=== PATIENT | female | born 1955 | race Asian ===

== ENCOUNTER 2017-12-07 14:40 | Emergency (ER) | payer MEDICAID ==
[~2017-12-07] VITALS: Ht 157.5 cm; Wt 95.5 kg
[~2017-12-07 14:40] MED LIST: COL100C PO; DEXL30CA3 PO; HYDR1TAB PO; LEVA15HF4 IH; LEVO500T89 PO; METO25TA6 PO; ONDA4TAB12 PO; TRAM50TA2 PO; WALKERFR; [UNRECOGNIZED DRUG - CODE] TOP
[2017-12-07] MEDS ORDERED: ALBU8.5H8 IH (15:44)
[2017-12-07] MEDS ORDERED: WALKERFR (15:44)
[2017-12-07] MEDS ORDERED: albuterol 2.5 MG/3 ML nebule NEB ONE (15:45)
[2017-12-07 16:10] VITALS: BP 120/44
== END 2017-12-07 16:13 | disposition home or self-care (01) ==
LOC: ER 14:40
DX: R05 Cough (principal); R53.83 Other fatigue; R42 Dizziness and giddiness; G89.29 Other chronic pain; K21.9 Gastro-esophageal reflux disease without esophagitis; Z88.6 Allergy status to analgesic agent; Z88.5 Allergy status to narcotic agent; Z88.8 Allergy status to other drugs, medicaments and biological substances; Z79.899 Other long term (current) drug therapy; Z98.890 Other specified postprocedural states; Z56.0 Unemployment, unspecified
CPT/HCPCS: 94640; 94760; 99283

== ENCOUNTER 2019-03-27 11:17 | Emergency (ER) | payer MEDICAID, OTHER ==
[~2019-03-27 11:17] MED LIST changes: +ALBU8.5H8 IH
--- NOTE | 2019-03-27 15:37 | NUR ---
PT CALLED, MESSAGES LEFT AT 2 DIFFERENT PHONE #. PROVIDER NOTIFIED OF LWOBS.
== END 2019-03-27 15:37 | disposition left against medical advice (07) ==
LOC: ER 11:17
DX: M25.559 Pain in unspecified hip (principal); Z53.21 Procedure and treatment not carried out due to patient leaving prior to being seen by health care provider

== ENCOUNTER 2019-03-31 03:52 | Emergency (ER) | payer MEDICAID, OTHER ==
[~2019-03-31] VITALS: Ht 165.1 cm; Wt 112.2 kg
[2019-03-31] MEDS ORDERED: LEVA15HF4 INH (04:09)
[2019-03-31] MEDS ORDERED: AZIT250T PO (04:09)
[2019-03-31 04:31] VITALS: BP 121/101
== END 2019-03-31 04:33 | disposition home or self-care (01) ==
LOC: ER 03:53
DX: R05 Cough (principal); Z76.0 Encounter for issue of repeat prescription; K21.9 Gastro-esophageal reflux disease without esophagitis; G89.29 Other chronic pain; F41.9 Anxiety disorder, unspecified; F32.9 Major depressive disorder, single episode, unspecified; Z60.2 Problems related to living alone; Z59.0 Homelessness; Z56.0 Unemployment, unspecified; Z98.890 Other specified postprocedural states; Z88.8 Allergy status to other drugs, medicaments and biological substances; Z88.5 Allergy status to narcotic agent; Z88.6 Allergy status to analgesic agent; Z79.899 Other long term (current) drug therapy
CPT/HCPCS: 99283

== ENCOUNTER 2022-02-18 13:01 | Emergency (ER) | payer MEDICAID, OTHER ==
[~2022-02-18] VITALS: Ht 165.1 cm; Wt 125.0 kg
[~2022-02-18 13:01] MED LIST changes: +ALBU8.5H17 IH; -ALBU8.5H8 IH; +AZIT250T PO; +LEVA15HF4 INH; +LEVO-65 PO; -LEVO500T89 PO; +LOP25T PO; -METO25TA6 PO
[2022-02-18 13:44] VITALS: BP 118/71
[2022-02-18] MEDS ORDERED: NAPR-56 PO (15:21)
== END 2022-02-18 15:40 | disposition home or self-care (01) ==
LOC: ER 13:01
DX: M17.9 Osteoarthritis of knee, unspecified (principal); M25.562 Pain in left knee; K21.9 Gastro-esophageal reflux disease without esophagitis; G89.29 Other chronic pain; F41.9 Anxiety disorder, unspecified; F32.A Depression, unspecified; Z98.890 Other specified postprocedural states; Z60.2 Problems related to living alone; Z56.0 Unemployment, unspecified; Z59.00 Homelessness unspecified; Z88.5 Allergy status to narcotic agent; Z88.8 Allergy status to other drugs, medicaments and biological substances; Z79.2 Long term (current) use of antibiotics; Z79.899 Other long term (current) drug therapy
CPT/HCPCS: 73564; 99284; A6449

== ENCOUNTER 2022-02-24 11:27 | Emergency (ER) | payer MEDICAID ==
[~2022-02-24] VITALS: Ht 162.6 cm; Wt 122.7 kg
[~2022-02-24 11:27] MED LIST changes: +NAPR-56 PO
[2022-02-24 12:37] LABS: ALANINE AMINOTRANSFERASE 31 U/L (12-78); ALBUMIN 3.2 G/DL (3.4-5.0); ALBUMIN/GLOBULIN RATIO 0.7 (1.1-1.5); ALKALINE PHOSPHATASE 103 IU/L (46-116); ANION GAP 6 (8-16); ASPARTATE AMINO TRANSFERASE 30 U/L (10-37); BILIRUBIN,TOTAL 0.6 MG/DL (0.1-1.0); BLOOD UREA NITROGEN 23 MG/DL (7-18); BUN/CREATININE RATIO 37.7 (6.6-38.0); CHLORIDE 104 MMOL/L (99-107); CREATININE 0.61 MG/DL (0.40-0.90); GLUCOSE 111 MG/DL (70-104); POTASSIUM 4.2 MMOL/L (3.5-5.1); SODIUM 138 MMOL/L (135-145); TOTAL PROTEIN 7.8 G/DL (6.4-8.2); eGFR > 90 ML/MIN
[2022-02-24 13:39] LABS: BASOPHILS % (AUTO) 0.4 % (0-1); EOSINOPHILS # (AUTO) 0.1 X10'3 (0-0.9); EOSINOPHILS % (AUTO) 0.9 % (0-6); LYMPHOCYTES # (AUTO) 1.4 X10'3 (1.1-4.8); MONOCYTES # (AUTO) 0.4 X10'3 (0-0.9); NEUTROPHILS # (AUTO) 5.3 X10'3 (1.8-7.7)
[2022-02-24 13:41] LABS: HEMATOCRIT 42.2 % (35.0-45.0); LYMPHOCYTES % (AUTO) 19.4 % (21-51); MEAN CORPUSCULAR HEMOGLOBIN 28.4 PG (27.0-31.0); MEAN CORPUSCULAR HGB CONC 33.2 g/dL (33.0-36.5); MEAN CORPUSCULAR VOLUME 85.5 FL (78-98); MONOCYTES % (AUTO) 5.5 % (2-12); NEUTROPHILS % (AUTO) 73.8 % (42-75); RED BLOOD COUNT 4.94 X10'6 (4.20-5.60); RED CELL DISTRIBUTION WIDTH 13.6 % (11.5-14.5); WHITE BLOOD COUNT 7.2 X10'3 (4.5-11.0)
[2022-02-24 14:21] LABS: LARGE PLATELETS FEW; PLATELET COUNT 43 X10'3 (140-440); PLATELET ESTIMATE DECREASED
[2022-02-24 16:35] VITALS: BP 117/71
== END 2022-02-24 17:38 | disposition home or self-care (01) ==
LOC: ER 11:27
DX: M50.33 Other cervical disc degeneration, cervicothoracic region (principal); M25.561 Pain in right knee; M25.562 Pain in left knee; K21.9 Gastro-esophageal reflux disease without esophagitis; G89.29 Other chronic pain; M54.9 Dorsalgia, unspecified; F31.9 Bipolar disorder, unspecified; Z98.890 Other specified postprocedural states; Z88.5 Allergy status to narcotic agent; Z79.899 Other long term (current) drug therapy; Z88.8 Allergy status to other drugs, medicaments and biological substances
CPT/HCPCS: 36415; 71045; 73000; 80053; 83880; 84484; 85008; 85025; 93005; 99285

== ENCOUNTER 2022-03-20 10:34 | Emergency (ER) | payer MEDICAID ==
[~2022-03-20] VITALS: Ht 165.1 cm; Wt 125.0 kg
--- NOTE | 2022-03-20 11:47 | NUR ---
Patient ambulated with walker to bathroom.
[2022-03-20 13:25] VITALS: BP 136/71
== END 2022-03-20 13:27 | disposition home or self-care (01) ==
LOC: ER 10:34
DX: Z00.00 Encounter for general adult medical examination without abnormal findings (principal); R07.89 Other chest pain; K21.9 Gastro-esophageal reflux disease without esophagitis; G89.29 Other chronic pain; M54.50 Low back pain, unspecified; Z88.5 Allergy status to narcotic agent; Z88.8 Allergy status to other drugs, medicaments and biological substances; Z56.0 Unemployment, unspecified; Z59.00 Homelessness unspecified
CPT/HCPCS: 73030; 93005; 99284

== ENCOUNTER 2022-05-17 20:12 | Emergency (ER) | payer MEDICAID ==
[~2022-05-17] VITALS: Ht 165.1 cm; Wt 125.5 kg
[~2022-05-17 20:12] MED LIST changes: -NAPR-56 PO
[2022-05-17] MEDS ORDERED: aspirin 81mg tab.chew PO ONE (20:30)
[2022-05-17] MEDS ORDERED: ondansetron/PF 4mg/2ml inj IV ONE (20:54)
[2022-05-17 21:07] LABS: BASOPHILS % (AUTO) 0.4 % (0-1); EOSINOPHILS # (AUTO) 0.1 X10'3 (0-0.9); EOSINOPHILS % (AUTO) 1.4 % (0-6); HEMATOCRIT 45.1 % (35.0-45.0); HEMOGLOBIN 14.8 g/dl (12.0-16.0); LYMPHOCYTES # (AUTO) 1.7 X10'3 (1.1-4.8); MEAN CORPUSCULAR HEMOGLOBIN 28.3 PG (27.0-31.0); MEAN CORPUSCULAR HGB CONC 32.8 g/dL (33.0-36.5); MEAN CORPUSCULAR VOLUME 86.2 FL (78-98); MEAN PLATELET VOLUME 12.2 FL (7.4-10.4); MONOCYTES # (AUTO) 0.4 X10'3 (0-0.9); MONOCYTES % (AUTO) 5.5 % (2-12); NEUTROPHILS # (AUTO) 5.7 X10'3 (1.8-7.7); NEUTROPHILS % (AUTO) 71.7 % (42-75); PLATELET COUNT 53 X10'3 (140-440); RED BLOOD COUNT 5.24 X10'6 (4.20-5.60); RED CELL DISTRIBUTION WIDTH 13.7 % (11.5-14.5)
[2022-05-17 21:13] LABS: ALANINE AMINOTRANSFERASE 31 U/L (12-78); ALBUMIN 3.3 G/DL (3.4-5.0); ALBUMIN/GLOBULIN RATIO 0.8 (1.1-1.5); ALKALINE PHOSPHATASE 102 IU/L (46-116); ANION GAP 6 (8-16); ASPARTATE AMINO TRANSFERASE 19 U/L (10-37); BILIRUBIN,TOTAL 0.3 MG/DL (0.1-1.0); BLOOD UREA NITROGEN 21 MG/DL (7-18); BUN/CREATININE RATIO 29.2 (6.6-38.0); CALCIUM 8.7 MG/DL (8.5-10.1); CHLORIDE 102 MMOL/L (99-107); CREATININE 0.72 MG/DL (0.40-0.90); GLUCOSE 128 MG/DL (70-104); SODIUM 140 MMOL/L (135-145); TOTAL PROTEIN 7.3 G/DL (6.4-8.2); eGFR 81 ML/MIN
[2022-05-17 22:29] LABS: LARGE PLATELETS MODERATE; PLATELET ESTIMATE DECREASED
[2022-05-17 22:33] LABS: CLARITY,URINE CLEAR (Clear); GLUCOSE, URINE NEGATIVE (Neg); KETONES,URINE NEGATIVE (Neg); LEUKOCYTE ESTERASE ,URINE NEGATIVE (Neg); NITRITES, URINE NEGATIVE (Neg); OCCULT BLOOD,URINE TRACE-LYSED (Neg); PROTEIN,URINE NEGATIVE (Neg); UROBILINOGEN,URINE 0.2 E.U/dL (0.2-1.0)
[2022-05-17 22:34] LABS: UA COLLECTION TYPE OTHER
[2022-05-17 22:35] LABS: COLOR,URINE YELLOW (Yellow)
[2022-05-17 22:40] LABS: BACTERIA,URINE NONE SEEN /HPF (Neg); MUCUS STRANDS NONE SEEN /LPF (Neg); RBC,URINE 0-2 /HPF (0-2); SQUAMOUS EPITHELIAL CELL,UR FEW /LPF (FEW); WBC,URINE 0-4 /HPF (0-4)
[2022-05-17 23:00] VITALS: BP 119/92
[2022-05-17] MEDS ORDERED: METO-395 PO (23:47)
== END 2022-05-18 00:09 | disposition home or self-care (01) ==
LOC: ER 20:13
DX: R07.9 Chest pain, unspecified (principal); I48.91 Unspecified atrial fibrillation; K21.9 Gastro-esophageal reflux disease without esophagitis; G89.29 Other chronic pain; M54.9 Dorsalgia, unspecified; F31.9 Bipolar disorder, unspecified; Z98.890 Other specified postprocedural states; Z88.5 Allergy status to narcotic agent; Z88.8 Allergy status to other drugs, medicaments and biological substances; Z79.899 Other long term (current) drug therapy; Z79.2 Long term (current) use of antibiotics; Z79.1 Long term (current) use of non-steroidal anti-inflammatories (NSAID)
CPT/HCPCS: 36415; 71045; 80053; 81001; 83880; 84484; 85008; 85025; 93005; 99285

== ENCOUNTER 2022-07-30 15:21 | Emergency (ER) | payer MEDICARE, MEDICAID ==
[~2022-07-30] VITALS: Ht 162.6 cm; Wt 120.5 kg
[~2022-07-30 15:21] MED LIST changes: +METO-395 PO
[2022-07-30 17:03] VITALS: BP 118/49
[2022-07-30] MEDS ORDERED: IBUP-860 PO (17:26)
[2022-07-30] MEDS ORDERED: ibuprofen tablet 400 MG TABLET PO ONE (17:30)
== END 2022-07-30 17:53 | disposition home or self-care (01) ==
LOC: ER 15:22
DX: M54.2 Cervicalgia (principal); M25.511 Pain in right shoulder; I10 Essential (primary) hypertension; K21.9 Gastro-esophageal reflux disease without esophagitis; G89.29 Other chronic pain; M54.9 Dorsalgia, unspecified; F31.9 Bipolar disorder, unspecified; Z88.5 Allergy status to narcotic agent; Z88.8 Allergy status to other drugs, medicaments and biological substances; Z88.6 Allergy status to analgesic agent; Z79.899 Other long term (current) drug therapy; Z79.1 Long term (current) use of non-steroidal anti-inflammatories (NSAID); W19.XXXA Unspecified fall, initial encounter; Y93.89 Activity, other specified; Y92.89 Other specified places as the place of occurrence of the external cause; Y99.8 Other external cause status
CPT/HCPCS: 70450; 72125; 99284; L0172; A4565; A6449

== ENCOUNTER 2022-08-08 17:30 | Emergency (ER) | payer MEDICARE, MEDICAID ==
[~2022-08-08] VITALS: Ht 162.6 cm; Wt 122.7 kg
[~2022-08-08 17:30] MED LIST changes: +IBUP-860 PO
[2022-08-08 17:57] LABS: HEMOGLOBIN 14.6 g/dl (12.0-16.0); MEAN CORPUSCULAR VOLUME 88.6 FL (78-98)
[2022-08-08 17:59] LABS: BASOPHILS % (AUTO) 0.4 % (0-1); EOSINOPHILS # (AUTO) 0.1 X10'3 (0-0.9); HEMATOCRIT 44.8 % (35.0-45.0); LYMPHOCYTES # (AUTO) 0.7 X10'3 (1.1-4.8); LYMPHOCYTES % (AUTO) 10.6 % (21-51); MEAN CORPUSCULAR HEMOGLOBIN 28.8 PG (27.0-31.0); MEAN CORPUSCULAR HGB CONC 32.5 g/dL (33.0-36.5); MEAN PLATELET VOLUME 11.5 FL (7.4-10.4); MONOCYTES # (AUTO) 0.3 X10'3 (0-0.9); MONOCYTES % (AUTO) 3.7 % (2-12); NEUTROPHILS # (AUTO) 5.9 X10'3 (1.8-7.7); NEUTROPHILS % (AUTO) 84.3 % (42-75); RED BLOOD COUNT 5.06 X10'6 (4.20-5.60); RED CELL DISTRIBUTION WIDTH 14.5 % (11.5-14.5)
[2022-08-08 18:09] LABS: ALANINE AMINOTRANSFERASE 34 U/L (12-78); ALBUMIN 3.2 G/DL (3.4-5.0); ALBUMIN/GLOBULIN RATIO 0.8 (1.1-1.5); ALKALINE PHOSPHATASE 105 IU/L (46-116); ANION GAP 3 (8-16); ASPARTATE AMINO TRANSFERASE 23 U/L (10-37); BILIRUBIN,TOTAL 0.5 MG/DL (0.1-1.0); BLOOD UREA NITROGEN 16 MG/DL (7-18); BUN/CREATININE RATIO 24.6 (10.0-20.0); CALCIUM 8.4 MG/DL (8.5-10.1); CHLORIDE 103 MMOL/L (99-107); CREATININE 0.65 MG/DL (0.40-0.90); GLUCOSE 152 MG/DL (70-104); POTASSIUM 4.3 MMOL/L (3.5-5.1); SODIUM 142 MMOL/L (135-145); TOTAL CARBON DIOXIDE 35.8 MMOL/L (24-32); TOTAL PROTEIN 7.4 G/DL (6.4-8.2); eGFR > 90 ML/MIN
[2022-08-08 18:11] LABS: PLATELET COUNT 48 X10'3 (140-440)
[2022-08-08 18:31] LABS: PLATELET ESTIMATE DECREASED
[2022-08-08 18:34] LABS: LARGE PLATELETS MODERATE
[2022-08-08 19:46] VITALS: BP 137/63
[2022-08-08] MEDS ORDERED: acetaminophen 325mg tablet PO ONE (20:00)
--- NOTE | 2022-08-08 20:33 | NUR ---
PT REFUSES TO STAY IN BED AND ON THE MONITOR. INSIST ON STAYING IN HER WHEELCHAIR AND CONTINUOUSLY GOING TO THE BATHROOM NOT BEING PRESENT IN ROOM WHEN NEEDED.
[2022-08-08] MEDS ORDERED: furosemide 10 MG/1 ML 10ml inj IV ONE (20:50)
== END 2022-08-08 20:56 | disposition left against medical advice (07) ==
LOC: ER 17:30
DX: I50.9 Heart failure, unspecified (principal); K21.9 Gastro-esophageal reflux disease without esophagitis; Z88.5 Allergy status to narcotic agent; Z88.8 Allergy status to other drugs, medicaments and biological substances
CPT/HCPCS: 36415; 71045; 80053; 83735; 83880; 84484; 85008; 85025; 93005; 99285; A4615

== ENCOUNTER 2023-04-25 18:04 | Emergency (ER) | payer MEDICARE, MEDICAID ==
[~2023-04-25] VITALS: Ht 165.1 cm; Wt 134.4 kg
[2023-04-25 18:28] LABS: BASOPHILS % (AUTO) 0.6 % (0-1); EOSINOPHILS % (AUTO) 0.8 % (0-6); HEMATOCRIT 43.1 % (35.0-45.0); HEMOGLOBIN 13.8 g/dl (12.0-16.0); LYMPHOCYTES % (AUTO) 16.5 % (21-51); MEAN CORPUSCULAR HEMOGLOBIN 28.6 PG (27.0-31.0); MEAN CORPUSCULAR HGB CONC 32.1 g/dL (33.0-36.5); MEAN PLATELET VOLUME 9.5 FL (7.4-10.4); MONOCYTES # (AUTO) 0.4 X10'3 (0-0.9); MONOCYTES % (AUTO) 6.5 % (2-12); NEUTROPHILS # (AUTO) 4.8 X10'3 (1.8-7.7); NEUTROPHILS % (AUTO) 75.6 % (42-75); PLATELET COUNT 112 X10'3 (140-440); RED BLOOD COUNT 4.84 X10'6 (4.20-5.60); RED CELL DISTRIBUTION WIDTH 14.7 % (11.5-14.5); WHITE BLOOD COUNT 6.3 X10'3 (4.5-11.0)
[2023-04-25 18:44] LABS: ALANINE AMINOTRANSFERASE 18 U/L (12-78); ALBUMIN 2.8 G/DL (3.4-5.0); ALBUMIN/GLOBULIN RATIO 0.6 (1.1-1.5); ALKALINE PHOSPHATASE 92 IU/L (46-116); ANION GAP 2 (8-16); ASPARTATE AMINO TRANSFERASE 18 U/L (10-37); BILIRUBIN,TOTAL 0.3 MG/DL (0.1-1.0); BLOOD UREA NITROGEN 20 MG/DL (7-18); BUN/CREATININE RATIO 22.2 (10.0-20.0); CALCIUM 8.6 MG/DL (8.5-10.1); CHLORIDE 100 MMOL/L (99-107); GLUCOSE 134 MG/DL (70-104); POTASSIUM 4.2 MMOL/L (3.5-5.1); SODIUM 141 MMOL/L (135-145); TOTAL CARBON DIOXIDE 38.6 MMOL/L (24-32); TOTAL PROTEIN 7.3 G/DL (6.4-8.2); eGFR 63 ML/MIN
[2023-04-25 18:51] LABS: PRO BRAIN NATRIURETIC PEPTIDE 281 PG/ML (0-125)
[2023-04-26 01:15] VITALS: TEMP 98
[2023-04-26] MEDS ORDERED: acetaminophen 325mg tablet PO ONE (07:05)
[2023-04-26 07:33] VITALS: BP 110/74; PULSE 85; RESP 18; O2SAT 98
== END 2023-04-26 07:37 | disposition home or self-care (01) ==
LOC: ER 18:05
DX: R09.02 Hypoxemia (principal); J45.901 Unspecified asthma with (acute) exacerbation; K21.9 Gastro-esophageal reflux disease without esophagitis; I10 Essential (primary) hypertension; G89.29 Other chronic pain; M54.9 Dorsalgia, unspecified; F31.9 Bipolar disorder, unspecified; Z88.8 Allergy status to other drugs, medicaments and biological substances; Z88.5 Allergy status to narcotic agent; Z79.899 Other long term (current) drug therapy
CPT/HCPCS: 36415; 71045; 80053; 83880; 84484; 85025; 93005; 99285; A4615

== ENCOUNTER 2023-05-05 01:05 | Emergency (ER) | payer MEDICARE, MEDICAID ==
[~2023-05-05] VITALS: Ht 165.1 cm; Wt 127.3 kg
[2023-05-05] MEDS ORDERED: apixaban 5mg tablet PO ONE (02:15)
[2023-05-05] MEDS ORDERED: CALC500T11 PO (03:07)
[2023-05-05 03:32] VITALS: BP 123/80; PULSE 83; RESP 20; TEMP 98; O2SAT 92
== END 2023-05-05 03:00 | disposition home or self-care (01) ==
LOC: ER 01:05
DX: Z02.89 Encounter for other administrative examinations (principal); I48.91 Unspecified atrial fibrillation; I10 Essential (primary) hypertension; G89.29 Other chronic pain; Z85.9 Personal history of malignant neoplasm, unspecified; Z88.8 Allergy status to other drugs, medicaments and biological substances; Z88.5 Allergy status to narcotic agent; Z79.2 Long term (current) use of antibiotics; Z79.899 Other long term (current) drug therapy
CPT/HCPCS: 99284

== ENCOUNTER 2023-05-05 23:33 | Emergency (ER) | payer MEDICARE, MEDICAID ==
[~2023-05-05] VITALS: Ht 165.1 cm; Wt 120.0 kg
[~2023-05-05 23:33] MED LIST changes: +CALC500T11 PO
[2023-05-06] MEDS ORDERED: acetaminophen 325mg tablet PO ONE (00:45)
[2023-05-06 01:25] LABS: BASOPHILS # (AUTO) 0.1 X10'3 (0-0.2); BASOPHILS % (AUTO) 0.9 % (0-1); EOSINOPHILS % (AUTO) 0.2 % (0-6); HEMATOCRIT 46.5 % (35.0-45.0); LYMPHOCYTES # (AUTO) 1.3 X10'3 (1.1-4.8); LYMPHOCYTES % (AUTO) 12.9 % (21-51); MEAN CORPUSCULAR HEMOGLOBIN 28.6 PG (27.0-31.0); MEAN CORPUSCULAR HGB CONC 32.3 g/dL (33.0-36.5); MEAN CORPUSCULAR VOLUME 88.6 FL (78-98); MEAN PLATELET VOLUME 9.3 FL (7.4-10.4); MONOCYTES # (AUTO) 0.6 X10'3 (0-0.9); MONOCYTES % (AUTO) 6.1 % (2-12); NEUTROPHILS # (AUTO) 7.8 X10'3 (1.8-7.7); NEUTROPHILS % (AUTO) 79.9 % (42-75); PLATELET COUNT 163 X10'3 (140-440); RED BLOOD COUNT 5.24 X10'6 (4.20-5.60); WHITE BLOOD COUNT 9.7 X10'3 (4.5-11.0)
[2023-05-06 01:26] VITALS: BP 165/82; TEMP 98.6
[2023-05-06 01:38] LABS: ALANINE AMINOTRANSFERASE 66 U/L (12-78); ALBUMIN/GLOBULIN RATIO 0.7 (1.1-1.5); ALKALINE PHOSPHATASE 95 IU/L (46-116); ANION GAP 3 (8-16); ASPARTATE AMINO TRANSFERASE 26 U/L (10-37); BILIRUBIN,TOTAL 0.5 MG/DL (0.1-1.0); BLOOD UREA NITROGEN 33 MG/DL (7-18); BUN/CREATININE RATIO 34.7 (10.0-20.0); CALCIUM 8.4 MG/DL (8.5-10.1); CHLORIDE 100 MMOL/L (99-107); CREATININE 0.95 MG/DL (0.40-0.90); GLUCOSE 131 MG/DL (70-104); POTASSIUM 4.3 MMOL/L (3.5-5.1); SODIUM 141 MMOL/L (135-145); TOTAL CARBON DIOXIDE 38.5 MMOL/L (24-32); TOTAL PROTEIN 7.1 G/DL (6.4-8.2); eCRCL 52 ML/MIN; eGFR 59 ML/MIN
[2023-05-06 02:10] LABS: BILIRUBIN,URINE SMALL (Neg); CLARITY,URINE SLIGHTLY CLOUDY (Clear); COLOR,URINE YELLOW (Yellow); GLUCOSE, URINE NEGATIVE (Neg); KETONES,URINE NEGATIVE (Neg); LEUKOCYTE ESTERASE ,URINE NEGATIVE (Neg); NITRITES, URINE NEGATIVE (Neg); OCCULT BLOOD,URINE MODERATE (Neg); PROTEIN,URINE 30 mg/dl (Neg)
[2023-05-06 02:18] LABS: UA COLLECTION TYPE NON-SPECIFIED
[2023-05-06 02:19] LABS: HYALINE CASTS 0-3 /LPF (NEGATIVE); MUCUS STRANDS MANY /LPF (Neg); SQUAMOUS EPITHELIAL CELL,UR MODERATE /LPF (FEW)
[2023-05-06 02:20] VITALS: PULSE 74; RESP 16; O2SAT 95
[2023-05-06 02:20] LABS: BACTERIA,URINE FEW /HPF (Neg); RBC,URINE 0-2 /HPF (0-2); WBC,URINE 0-4 /HPF (0-4)
[2023-05-06 02:22] LABS: TRANSITIONAL EPI CELLS,URINE FEW /HPF
== END 2023-05-06 04:13 | disposition home or self-care (01) ==
LOC: ER 23:34
DX: M25.562 Pain in left knee (principal); M25.551 Pain in right hip; I10 Essential (primary) hypertension; G89.29 Other chronic pain; Z85.9 Personal history of malignant neoplasm, unspecified; Z88.8 Allergy status to other drugs, medicaments and biological substances; Z88.5 Allergy status to narcotic agent; Z79.2 Long term (current) use of antibiotics; Z79.899 Other long term (current) drug therapy; W06.XXXA Fall from bed, initial encounter; Z91.81 History of falling; Y93.89 Activity, other specified; Y92.89 Other specified places as the place of occurrence of the external cause; Y99.8 Other external cause status
CPT/HCPCS: 36415; 73502; 73564; 80053; 81001; 84484; 85025; 99284

== ENCOUNTER → 2023-12-18 | Emergency (ER) | payer MEDICARE, MEDICAID ==
[~2023-12-18] MED LIST changes: +ONDA-243 PO; -ONDA4TAB12 PO
== END | disposition left against medical advice (07) ==
LOC: ER 19:26
DX: R09.02 Hypoxemia (principal); Z53.21 Procedure and treatment not carried out due to patient leaving prior to being seen by health care provider

== ENCOUNTER 2023-12-21 21:08 | Inpatient (IN) | payer MEDICARE, MEDICAID ==
[~2023-12-21] VITALS: Ht 165.1 cm; Wt 123.7 kg
[2023-12-21 21:38] LABS: BASOPHILS % (AUTO) 0.7 % (0-1); EOSINOPHILS % (AUTO) 0.3 % (0-6); HEMATOCRIT 39.2 % (35.0-45.0); HEMOGLOBIN 12.7 g/dl (12.0-16.0); LYMPHOCYTES % (AUTO) 23.3 % (21-51); MEAN CORPUSCULAR HEMOGLOBIN 28.9 PG (27.0-31.0); MEAN CORPUSCULAR HGB CONC 32.4 g/dL (33.0-36.5); MEAN CORPUSCULAR VOLUME 89.1 FL (78-98); MEAN PLATELET VOLUME 10.4 FL (7.4-10.4); MONOCYTES # (AUTO) 0.4 X10'3 (0-0.9); MONOCYTES % (AUTO) 9.4 % (2-12); NEUTROPHILS % (AUTO) 66.3 % (42-75); PLATELET COUNT 121 X10'3 (140-440); RED CELL DISTRIBUTION WIDTH 16.7 % (11.5-14.5); WHITE BLOOD COUNT 4.5 X10'3 (4.5-11.0)
[2023-12-21 22:19] LABS: ALANINE AMINOTRANSFERASE 41 U/L (12-78); ALBUMIN 2.8 G/DL (3.4-5.0); ALBUMIN/GLOBULIN RATIO 0.7 (1.1-1.5); ALKALINE PHOSPHATASE 115 IU/L (46-116); ANION GAP 1 (8-16); ASPARTATE AMINO TRANSFERASE 23 U/L (10-37); BILIRUBIN,TOTAL 0.3 MG/DL (0.1-1.0); BLOOD UREA NITROGEN 18 MG/DL (7-18); BUN/CREATININE RATIO 16.4 (10.0-20.0); CALCIUM 8.3 MG/DL (8.5-10.1); CHLORIDE 107 MMOL/L (99-107); GLUCOSE 161 MG/DL (70-104); POTASSIUM 4.4 MMOL/L (3.5-5.1); SODIUM 143 MMOL/L (135-145); TOTAL CARBON DIOXIDE 35.4 MMOL/L (24-32); TOTAL PROTEIN 6.7 G/DL (6.4-8.2); eCRCL 45 ML/MIN; eGFR 50 ML/MIN
[2023-12-21 22:30] LABS: PRO BRAIN NATRIURETIC PEPTIDE 3601 PG/ML (0-125)
[2023-12-21] MEDS: furosemide 10 MG/1 ML 10ml inj IV ONE (23:41)
[2023-12-21 23:54] LABS: ABG BASE EXCESS 1.2 mmol/L (-2.0-2.0); ABG HCO3 31.1 mmol/L (22.0-26.0); ABG OXYGEN SATURATION 89.3 % (92-98.5); ABG PCO2 (T) 76.4 mmHg (32.0-45.0); ABG PH (T) 7.226 (7.350-7.450); ALLEN'S TEST POSITIVE; FCOHb 1.8 % (0.5-1.5); FHHb 10.5 % (0.0-5.0); FLOW 2 L/min; FMetHb 0.2 % (0.0-1.5); FO2Hb 87.5 % (94-97); MODE MASK - BIPAP; PATIENT TEMPERATURE 36.7; TOTAL HEMOGLOBIN 13.7 G/dl (12.0-16.0)
[2023-12-22] VITALS (36 sets, daily range): BP systolic 88–142; BP diastolic 49–93; PULSE 74–148; RESP 0–26; TEMP 98.9; O2SAT 88–100
[2023-12-22] MEDS ORDERED: magnesium sulf-water 4G/100mL 100 ML IV PRN (00:40)
[2023-12-22] MEDS ORDERED: albuterol 2.5 MG/3 ML nebule NEB PRN (00:40)
[2023-12-22] MEDS ORDERED: ondansetron/PF 4mg/2ml inj IV PRN (00:40)
[2023-12-22] MEDS ORDERED: magnesium Cl slow-release 64mg tablet PO PRN (00:40)
[2023-12-22] MEDS ORDERED: potassium Cl 40MEQ/1/2NS 520ml 520 ML IV PRN (00:40)
[2023-12-22] MEDS ORDERED: acetaminophen 325mg tablet PO PRN ×2 (00:40→12:41)
[2023-12-22] MEDS ORDERED: magnesium hydroxide 30ml (MOM) UD suspension PO PRN ×2 (00:40→12:45)
[2023-12-22] MEDS ORDERED: potassium Cl 20 mEq SR tablet PO PRN ×4 (00:40→12:46)
[2023-12-22] MEDS ORDERED: mag hydrox/Alum hydrox/simeth 30ml oral suspension PO PRN (00:40)
[2023-12-22] MEDS: PERFLUTREN PROTEIN-A MICROSPHR (Optison) 0.22 MG/ML 3ML VIAL IV ONE (00:46)
[2023-12-22] MEDS ORDERED: iohexol 350MG/ML 100ml bottle IV ONE (00:50)
[2023-12-22 01:18] LABS: ABG BASE EXCESS 0.6 mmol/L (-2.0-2.0); ABG OXYGEN SATURATION 94.9 % (92-98.5); ABG PCO2 (T) 70.7 mmHg (32.0-45.0); ABG PH (T) 7.244 (7.350-7.450); ABG PO2 (T) 82.2 mmHg (75.0-100.0); ALLEN'S TEST Modified; FCOHb 1.6 % (0.5-1.5); FMetHb 0.3 % (0.0-1.5); FO2Hb 93.1 % (94-97); MODE BiPAP; PATIENT TEMPERATURE 36.7; RESPIRATORY RATE 10 b/min; TOTAL HEMOGLOBIN 13.9 G/dl (12.0-16.0)
[2023-12-22 01:31] LABS: D-DIMER 0.24 MG/L FEU (0-0.50)
[2023-12-22 01:37] LABS: MAGNESIUM 2.2 MG/DL (1.5-2.4); THYROID STIMULATING HORMONE 2.05 ulU/ml (0.34-4.50)
[2023-12-22 02:29] LABS: ABG BASE EXCESS 4.6 mmol/L (-2.0-2.0); ABG HCO3 34.4 mmol/L (22.0-26.0); ABG OXYGEN SATURATION 95.2 % (92-98.5); ABG PCO2 (T) 79.8 mmHg (32.0-45.0); ABG PH (T) 7.253 (7.350-7.450); ALLEN'S TEST Modified; FCOHb 1.7 % (0.5-1.5); FHHb 4.7 % (0.0-5.0); FMetHb 0.3 % (0.0-1.5); FO2Hb 93.3 % (94-97); MODE BiPAP; RESPIRATORY RATE 10 b/min; TOTAL HEMOGLOBIN 13.7 G/dl (12.0-16.0)
[2023-12-22] MEDS: etomidate 2mg/ml inj. IV ONE (02:51)
[2023-12-22] MEDS: rocuronium 10mg/ml inj IV ONE (02:51)
[2023-12-22] MEDS: propofol 1000mg/100ml bottle 100 ML IV PRN (03:06)
[2023-12-22] MEDS: ipratropium/albuterol 3ml nebule NEB SCH (03:27)
[2023-12-22 03:38] LABS: ABG BASE EXCESS 6.2 mmol/L (-2.0-2.0); ABG HCO3 31.7 mmol/L (22.0-26.0); ABG OXYGEN SATURATION 96.3 % (92-98.5); ABG PH (T) 7.429 (7.350-7.450); ABG PO2 (T) 81.5 mmHg (75.0-100.0); ALLEN'S TEST POSITIVE; FCOHb 1.1 % (0.5-1.5); FHHb 3.7 % (0.0-5.0); FMetHb 0.1 % (0.0-1.5); FO2Hb 95.1 % (94-97); MODE VENT - prvc; PATIENT TEMPERATURE 37.1; PEEP 5 cm H2O; RESPIRATORY RATE 22 b/min; TIDAL VOLUME 500 mL
[2023-12-22] MEDS: COMMUNICATION ORDER 1 EA MISC MC ONE (03:45)
[2023-12-22] MEDS: glycopyrrolate 0.2mg/ml inj IV ONE (04:10)
[2023-12-22 04:20] LABS: URINE AMPHETAMINE SCREEN NEGATIVE (Neg); URINE BARBITUATE SCREEN NEGATIVE (Neg); URINE BENZODIAZEPINES SCREEN NEGATIVE (Neg); URINE CANNABINOID SCREEN NEGATIVE (Neg); URINE COCAINE SCREEN NEGATIVE (Neg); URINE METHADONE SCREEN NEGATIVE (Neg); URINE OPIATE SCREEN NEGATIVE (Neg); URINE PHENCYCLIDINE SCREEN NEGATIVE (Neg)
[2023-12-22] MEDS: FENTANYL-0.9 % NACL/PF 100 ML IV SCH (04:41)
[2023-12-22 05:00] LABS: POTASSIUM 4.5 MMOL/L (3.5-5.1)
[2023-12-22] MEDS: methylPREDNISolone sod succ/PF 40mg inj. IV SCH (07:16)
[2023-12-22] MEDS: piperacillin/tazo 3.375gm/50ml 50 ML IV SCH (07:16)
[2023-12-22] MEDS: docusate sodium 100mg/10ml UD cup PO SCH (07:16)
[2023-12-22] MEDS: heparin, porcine 5000 units/ml vial SQ SCH (07:17)
[2023-12-22 07:24] LABS: PHOSPHORUS 4.7 MG/DL (2.3-4.5)
[2023-12-22] MEDS ORDERED: rocuronium 10mg/ml inj IV ONE (08:00)
[2023-12-22] MEDS: furosemide 40mg/4ml inj IV ONE (09:01)
[2023-12-22] MEDS ORDERED: docusate sodium 100mg/10ml UD cup OGT SCH (11:15)
[2023-12-22] MEDS ORDERED: acetaminophen 325mg tablet OGT PRN (11:15)
[2023-12-22] MEDS ORDERED: mag hydrox/Alum hydrox/simeth 30ml oral suspension OGT PRN (11:16)
[2023-12-22] MEDS ORDERED: magnesium hydroxide 30ml (MOM) UD suspension OGT PRN (11:16)
[2023-12-22] MEDS ORDERED: POTASSIUM CHLORIDE 20 MEQ/15 ML oral solution PO PRN ×2 (11:17→12:44)
[2023-12-22] MEDS ORDERED: POTASSIUM CHLORIDE 20 MEQ/15 ML oral solution OGT PRN ×2 (11:17→11:21)
[2023-12-22] MEDS ORDERED: UNABLE TO OBTAIN (11:24)
[2023-12-22] MEDS: acetaminophen 325mg tablet PO PRN (13:21)
[2023-12-22 19:48] LABS: ABG BASE EXCESS 6.6 mmol/L (-2.0-2.0); ABG HCO3 33.1 mmol/L (22.0-26.0); ABG OXYGEN SATURATION 93.9 % (92-98.5); ABG PCO2 (T) 56.1 mmHg (32.0-45.0); ABG PO2 (T) 71.1 mmHg (75.0-100.0); ALLEN'S TEST Modified; FCOHb 0.6 % (0.5-1.5); FHHb 6.1 % (0.0-5.0); FMetHb 0.2 % (0.0-1.5); FO2Hb 93.1 % (94-97); MODE NASAL CANNULA; PATIENT TEMPERATURE 37.2; TOTAL HEMOGLOBIN 13.7 G/dl (12.0-16.0)
[2023-12-22] MEDS: docusate sod 100mg capsule PO SCH (20:45)
[2023-12-23] VITALS (30 sets, daily range): BP systolic 102–146; BP diastolic 44–97; PULSE 85–134; RESP 14–26; TEMP 97.4–98.7; O2SAT 90–98
[2023-12-23 03:47] LABS: BASOPHILS % (AUTO) 0.4 % (0-1); EOSINOPHILS % (AUTO) 0 % (0-6); HEMATOCRIT 39.3 % (35.0-45.0); HEMOGLOBIN 12.6 g/dl (12.0-16.0); LYMPHOCYTES # (AUTO) 0.4 X10'3 (1.1-4.8); LYMPHOCYTES % (AUTO) 7.7 % (21-51); MEAN CORPUSCULAR HEMOGLOBIN 28.7 PG (27.0-31.0); MEAN CORPUSCULAR VOLUME 89.7 FL (78-98); MEAN PLATELET VOLUME 9.5 FL (7.4-10.4); MONOCYTES # (AUTO) 0.3 X10'3 (0-0.9); MONOCYTES % (AUTO) 5.3 % (2-12); NEUTROPHILS # (AUTO) 4.8 X10'3 (1.8-7.7); NEUTROPHILS % (AUTO) 86.6 % (42-75); PLATELET COUNT 94 X10'3 (140-440); RED BLOOD COUNT 4.38 X10'6 (4.20-5.60); RED CELL DISTRIBUTION WIDTH 16.5 % (11.5-14.5); WHITE BLOOD COUNT 5.5 X10'3 (4.5-11.0)
[2023-12-23 04:04] LABS: ALANINE AMINOTRANSFERASE 31 U/L (12-78); ALBUMIN 2.3 G/DL (3.4-5.0); ALBUMIN/GLOBULIN RATIO 0.6 (1.1-1.5); ALKALINE PHOSPHATASE 93 IU/L (46-116); ANION GAP 2 (8-16); ASPARTATE AMINO TRANSFERASE 16 U/L (10-37); BILIRUBIN,TOTAL 0.3 MG/DL (0.1-1.0); BLOOD UREA NITROGEN 21 MG/DL (7-18); BUN/CREATININE RATIO 16.4 (10.0-20.0); CALCIUM 8.1 MG/DL (8.5-10.1); CHLORIDE 104 MMOL/L (99-107); CREATININE 1.28 MG/DL (0.40-0.90); GLUCOSE 274 MG/DL (70-104); MAGNESIUM 2.2 MG/DL (1.5-2.4); PHOSPHORUS 4.3 MG/DL (2.3-4.5); POTASSIUM 4.1 MMOL/L (3.5-5.1); SODIUM 142 MMOL/L (135-145); TOTAL CARBON DIOXIDE 35.8 MMOL/L (24-32); TOTAL PROTEIN 6.2 G/DL (6.4-8.2); eCRCL 38 ML/MIN; eGFR 42 ML/MIN
[2023-12-23] MEDS: mineral oil/petrolatum ophthal oint EACHEYE SCH (08:00)
[2023-12-23] MEDS: CefTRIAXone/D5W-Rocephin 1gm 50 ML IV SCH (08:32)
[2023-12-23] MEDS: methylPREDNISolone sod succ/PF 40mg inj. IV SCH (19:40)
[2023-12-23] MEDS: apixaban 5mg tablet PO SCH (19:46)
[2023-12-24] VITALS (13 sets, daily range): BP systolic 110–125; BP diastolic 61–69; PULSE 70–113; RESP 16–22; TEMP 97.5–98.2; O2SAT 90–98
[2023-12-24 04:58] LABS: BASOPHILS % (AUTO) 0 % (0-1); EOSINOPHILS % (AUTO) 0 % (0-6); HEMATOCRIT 41.3 % (35.0-45.0); HEMOGLOBIN 13.3 g/dl (12.0-16.0); LYMPHOCYTES # (AUTO) 0.5 X10'3 (1.1-4.8); LYMPHOCYTES % (AUTO) 6.3 % (21-51); MEAN CORPUSCULAR HGB CONC 32.2 g/dL (33.0-36.5); MEAN PLATELET VOLUME 9.8 FL (7.4-10.4); MONOCYTES # (AUTO) 0.2 X10'3 (0-0.9); NEUTROPHILS # (AUTO) 6.8 X10'3 (1.8-7.7); NEUTROPHILS % (AUTO) 90.7 % (42-75); PLATELET COUNT 118 X10'3 (140-440); RED BLOOD COUNT 4.59 X10'6 (4.20-5.60); RED CELL DISTRIBUTION WIDTH 16.4 % (11.5-14.5); WHITE BLOOD COUNT 7.5 X10'3 (4.5-11.0)
[2023-12-24] MEDS: mag hydrox/Alum hydrox/simeth 30ml oral suspension PO PRN (05:09)
[2023-12-24 05:17] LABS: ALANINE AMINOTRANSFERASE 29 U/L (12-78); ALBUMIN 2.4 G/DL (3.4-5.0); ALBUMIN/GLOBULIN RATIO 0.5 (1.1-1.5); ALKALINE PHOSPHATASE 95 IU/L (46-116); ANION GAP 6 (8-16); ASPARTATE AMINO TRANSFERASE 15 U/L (10-37); BILIRUBIN,TOTAL 0.3 MG/DL (0.1-1.0); BLOOD UREA NITROGEN 30 MG/DL (7-18); BUN/CREATININE RATIO 29.4 (10.0-20.0); CALCIUM 8.4 MG/DL (8.5-10.1); CHLORIDE 105 MMOL/L (99-107); CREATININE 1.02 MG/DL (0.40-0.90); GLUCOSE 147 MG/DL (70-104); MAGNESIUM 2.3 MG/DL (1.5-2.4); PHOSPHORUS 4.2 MG/DL (2.3-4.5); POTASSIUM 4.5 MMOL/L (3.5-5.1); SODIUM 144 MMOL/L (135-145); TOTAL CARBON DIOXIDE 33.2 MMOL/L (24-32); TOTAL PROTEIN 6.9 G/DL (6.4-8.2); eCRCL 48 ML/MIN; eGFR 54 ML/MIN
[2023-12-24] MEDS: spironolactone 25 MG tablet PO SCH (08:34)
[2023-12-24] MEDS: metoprolol succinate 25mg (24-HOUR) SR. Tablet PO SCH (08:34)
[2023-12-24] MEDS: pantoprazole 40mg Tablet.DR PO SCH (08:34)
[2023-12-24] MEDS: azithromycin 250mg tablet PO ONE (15:09)
[2023-12-25] VITALS (10 sets, daily range): BP systolic 117–125; BP diastolic 53–76; PULSE 58–91; RESP 14–20; TEMP 96.5–99.5; O2SAT 91–99
[2023-12-25 05:58] LABS: BASOPHILS % (AUTO) 0.1 % (0-1); EOSINOPHILS % (AUTO) 0 % (0-6); HEMATOCRIT 42.7 % (35.0-45.0); HEMOGLOBIN 13.8 g/dl (12.0-16.0); LYMPHOCYTES # (AUTO) 0.8 X10'3 (1.1-4.8); LYMPHOCYTES % (AUTO) 11.9 % (21-51); MEAN CORPUSCULAR HGB CONC 32.3 g/dL (33.0-36.5); MEAN CORPUSCULAR VOLUME 89.9 FL (78-98); MEAN PLATELET VOLUME 9.7 FL (7.4-10.4); MONOCYTES # (AUTO) 0.4 X10'3 (0-0.9); MONOCYTES % (AUTO) 5.6 % (2-12); NEUTROPHILS # (AUTO) 5.6 X10'3 (1.8-7.7); NEUTROPHILS % (AUTO) 82.4 % (42-75); PLATELET COUNT 112 X10'3 (140-440); RED BLOOD COUNT 4.75 X10'6 (4.20-5.60); RED CELL DISTRIBUTION WIDTH 16.2 % (11.5-14.5); WHITE BLOOD COUNT 6.8 X10'3 (4.5-11.0)
[2023-12-25 06:16] LABS: ALANINE AMINOTRANSFERASE 34 U/L (12-78); ALBUMIN 2.5 G/DL (3.4-5.0); ALBUMIN/GLOBULIN RATIO 0.6 (1.1-1.5); ALKALINE PHOSPHATASE 84 IU/L (46-116); ANION GAP 4 (8-16); ASPARTATE AMINO TRANSFERASE 22 U/L (10-37); BILIRUBIN,TOTAL 0.3 MG/DL (0.1-1.0); BLOOD UREA NITROGEN 34 MG/DL (7-18); BUN/CREATININE RATIO 36.6 (10.0-20.0); CALCIUM 8.1 MG/DL (8.5-10.1); CHLORIDE 103 MMOL/L (99-107); CREATININE 0.93 MG/DL (0.40-0.90); GLUCOSE 143 MG/DL (70-104); MAGNESIUM 2.4 MG/DL (1.5-2.4); PHOSPHORUS 3.9 MG/DL (2.3-4.5); POTASSIUM 4.1 MMOL/L (3.5-5.1); SODIUM 141 MMOL/L (135-145); TOTAL CARBON DIOXIDE 33.9 MMOL/L (24-32); TOTAL PROTEIN 6.5 G/DL (6.4-8.2); eCRCL 53 ML/MIN; eGFR 60 ML/MIN
[2023-12-25] MEDS: EMPAGLIFLOZIN 10 MG TABLET PO SCH (08:53)
[2023-12-25] MEDS: azithromycin 250mg tablet PO SCH (08:53)
[2023-12-25] MEDS: losartan 25mg tablet PO SCH (08:54)
[2023-12-25] MEDS: nicotine 21mg patch - 24 hr TD SCH (18:15)
[2023-12-26 06:32] VITALS: BP 123/56; PULSE 73; RESP 16; TEMP 97.6; O2SAT 91
[2023-12-26 06:46] LABS: BASOPHILS % (AUTO) 0.1 % (0-1); EOSINOPHILS % (AUTO) 0 % (0-6); LYMPHOCYTES # (AUTO) 0.5 X10'3 (1.1-4.8); LYMPHOCYTES % (AUTO) 11.3 % (21-51); MEAN CORPUSCULAR HEMOGLOBIN 28.2 PG (27.0-31.0); MEAN CORPUSCULAR HGB CONC 31.8 g/dL (33.0-36.5); MEAN CORPUSCULAR VOLUME 88.8 FL (78-98); MEAN PLATELET VOLUME 9.2 FL (7.4-10.4); MONOCYTES # (AUTO) 0.2 X10'3 (0-0.9); MONOCYTES % (AUTO) 4.5 % (2-12); NEUTROPHILS # (AUTO) 3.5 X10'3 (1.8-7.7); NEUTROPHILS % (AUTO) 84.1 % (42-75); PLATELET COUNT 97 X10'3 (140-440); RED BLOOD COUNT 4.96 X10'6 (4.20-5.60); RED CELL DISTRIBUTION WIDTH 15.9 % (11.5-14.5); WHITE BLOOD COUNT 4.1 X10'3 (4.5-11.0)
[2023-12-26 06:48] LABS: ALANINE AMINOTRANSFERASE 48 U/L (12-78); ALBUMIN 2.6 G/DL (3.4-5.0); ALBUMIN/GLOBULIN RATIO 0.7 (1.1-1.5); ALKALINE PHOSPHATASE 84 IU/L (46-116); ANION GAP 5 (8-16); ASPARTATE AMINO TRANSFERASE 24 U/L (10-37); BILIRUBIN,TOTAL 0.3 MG/DL (0.1-1.0); BLOOD UREA NITROGEN 32 MG/DL (7-18); CALCIUM 8.2 MG/DL (8.5-10.1); CHLORIDE 102 MMOL/L (99-107); CREATININE 0.97 MG/DL (0.40-0.90); GLUCOSE 154 MG/DL (70-104); MAGNESIUM 2.3 MG/DL (1.5-2.4); POTASSIUM 4.4 MMOL/L (3.5-5.1); SODIUM 139 MMOL/L (135-145); TOTAL CARBON DIOXIDE 32.2 MMOL/L (24-32); TOTAL PROTEIN 6.5 G/DL (6.4-8.2); eCRCL 51 ML/MIN; eGFR 57 ML/MIN
[2023-12-26 06:57] VITALS: RESP 16; O2SAT 91
[2023-12-26 09:25] VITALS: RESP 16; O2SAT 91
[2023-12-26 10:00] VITALS: BP 124/57; PULSE 67; RESP 16; TEMP 97.8; O2SAT 95
[2023-12-26 12:12] VITALS: PULSE 71; RESP 18; O2SAT 92
[2023-12-26 12:20] VITALS: PULSE 93; RESP 18
== END 2023-12-26 14:30 | disposition left against medical advice (07) | DRG 208 ==
LOC: ER 21:09 → UNDOADMIN 12-22 00:43 → ED HOLD 12-22 00:43 → UNDOADMIN 12-22 01:46 → EDBEDREQSVC 12-22 02:02 → EDBEDREQ 12-22 02:02 → ED HOLD 12-22 04:21 → EDBEDREQSVC 12-22 04:31 → EDBEDREQTM 12-22 04:32 → ED HOLD 12-22 04:52 → CICU 2S 12-22 04:52 → PCU 3S 12-23 13:57 → SUR 3N 12-25 22:30
PROVIDERS: ADMIT Internal Medicine Critical Care Medicine; ATTEND Family Medicine
PROC: 5A1935Z Respiratory Ventilation, Less than 24 Consecutive Hours (ICD-10-PCS; principal; 2023-12-22)
PROC: 0BH17EZ Insertion of Endotracheal Airway into Trachea, Via Natural or Artificial Opening (ICD-10-PCS; 2023-12-22)
PROC: B32T1ZZ Computerized Tomography (CT Scan) of Left Pulmonary Artery using Low Osmolar Contrast (ICD-10-PCS; 2023-12-22)
PROC: B3201ZZ Computerized Tomography (CT Scan) of Thoracic Aorta using Low Osmolar Contrast (ICD-10-PCS; 2023-12-22)
PROC: B32S1ZZ Computerized Tomography (CT Scan) of Right Pulmonary Artery using Low Osmolar Contrast (ICD-10-PCS; 2023-12-22)
PROC: 5A09357 Assistance with Respiratory Ventilation, Less than 24 Consecutive Hours, Continuous Positive Airway Pressure (ICD-10-PCS; 2023-12-22)
PROC: 5A09357 Assistance with Respiratory Ventilation, Less than 24 Consecutive Hours, Continuous Positive Airway Pressure (ICD-10-PCS; 2023-12-25)
DX: J96.01 Acute respiratory failure with hypoxia (principal); I50.43 Acute on chronic combined systolic (congestive) and diastolic (congestive) heart failure; J18.9 Pneumonia, unspecified organism; J44.1 Chronic obstructive pulmonary disease with (acute) exacerbation; E66.2 Morbid (severe) obesity with alveolar hypoventilation; I48.92 Unspecified atrial flutter; J44.0 Chronic obstructive pulmonary disease with (acute) lower respiratory infection; E44.1 Mild protein-calorie malnutrition; J96.02 Acute respiratory failure with hypercapnia; I11.0 Hypertensive heart disease with heart failure; Z20.822 Contact with and (suspected) exposure to COVID-19; Z53.21 Procedure and treatment not carried out due to patient leaving prior to being seen by health care provider; F32.A Depression, unspecified; F41.9 Anxiety disorder, unspecified; G89.29 Other chronic pain; I45.6 Pre-excitation syndrome; M54.9 Dorsalgia, unspecified; K21.9 Gastro-esophageal reflux disease without esophagitis; I25.2 Old myocardial infarction; Z79.899 Other long term (current) drug therapy; Z88.8 Allergy status to other drugs, medicaments and biological substances; Z88.5 Allergy status to narcotic agent
CPT/HCPCS: 36415; 36600; 71045; 71275; 80053; 80305; 82803; 82948; 83735; 83880; 84100; 84132; 84145; 84443; 84484; 85018; 85025; 85379; 87070; 87081; 87811; 93005; 93306; 93970; 94002; 94003; 94640; 94660; 94760; 96374; 96375; 97161; 97530; 97535; 99285; A4615; A7015; C1758; G0378; J0696; J1644; J1940; J2543; J2704; J2919; J3010; J3490; J7040; Q9967